=== PATIENT | female | born 1980 | race Caucasian/White ===

== ENCOUNTER 2024-03-19 20:47 | Emergency (ER) | payer SELFPAY ==
[2024-03-19] MEDS ORDERED: ONDANSETRON 4 MG/2 ML VIAL ONE (21:08)
[2024-03-19] MEDS ORDERED: LIDOCAINE 1% 20 ML MDV ONE (21:08)
[2024-03-19] MEDS ORDERED: KETOROLAC 30 MG/ML INJ ONE (21:08)
[2024-03-19] MEDS ORDERED: AMOX/K CLAV 875 MG TAB ONE (21:08)
[2024-03-19] MEDS ORDERED: FENTANYL CITR 100 MCG/2 ML ONE (21:09)
[2024-03-19] MEDS ORDERED: DIAZEPAM 5 MG TABLET ONE (21:09)
[2024-03-19] MEDS ORDERED: TDAP (DIPHTH,PERTUSS(ACELL),TET VAC) 0.5 ML VIAL IMVAC ONE (21:09)
[2024-03-19] MEDS ORDERED: PROMETHAZINE INJ 25 MG/ML AMP ONE (21:37)
--- NOTE | 2024-03-19 21:55 | RAD REPORT ---
EXAM DESCRIPTION: RAD - Tib Fib Right - 03/19/2024 9:34 pm CLINICAL HISTORY: ANIMAL BITE COMPARISON: <Comparisons> FINDINGS: No fracture, dislocation or joint effusion.
--- NOTE | 2024-03-19 21:56 | RAD REPORT ---
EXAM DESCRIPTION: RAD - Foot Right 3 View - 03/19/2024 9:34 pm CLINICAL HISTORY: ANIMAL BITE COMPARISON: <Comparisons> FINDINGS: No fracture, dislocation or aggressive marrow lesion. Small calcaneal spur. Small calcific ation posterior to the distal tibia likely chronic.
[2024-03-19] MEDS ORDERED: methocarbamoL 750 MG TAB ONE (23:25)
[2024-03-19] MEDS ORDERED: HYDROCODONE/APAP 10/325 TAB ONE (23:25)
--- NOTE | 2024-03-19 23:25 | ER ---
Nurse's Notes [facility] Name: Samantha River Age: 43 yrs Sex: Female : 1980 Arrival Date: 03/19/2024 Time: 20:47 Bed 14 Private MD: Diagnosis: Right foot dog bite,, right ankle sprain, right foot sprain, right knee sprain, acute puncture wound to right lower extremity and that after the dog bite;Bitten by dog, initial encounter Presentation: 03/19 20:57 Chief complaint: Patient states: dog bite and right knee injury. States she twisted her cp4 knee when she was trying to get away from the dog. 23:56 Coronavirus screen: Client denies travel out of the [place] in the last 14 days. At this cp4 time, the client does not indicate any symptoms associated with coronavirus-19. Ebola Screen: Patient negative for fever greater than or equal to 101.5 degrees Fahrenheit, and additional compatible Ebola Virus Disease symptoms Patient denies exposure to infectious person. Patient denies travel to an Ebola-affected area in the 21 days before illness onset. No symptoms or risks identified at this time. Initial Sepsis Screen: Does the patient meet any 2 criteria? No. Patient's initial sepsis screen is negative. Does the patient have a suspected source of infection? No. Patient's initial sepsis screen is negative. Risk Assessment: Do you want to hurt yourself or someone else? Patient reports no desire to harm self or others. Onset of symptoms was March 19, 2024. 23:56 Acuity: STEFFANY 3 cp4 23:56 Method Of Arrival: Wheelchair cp4 Triage Assessment: 21:02 General: Appears distressed, Behavior is agitated, anxious. Pain: Complains of pain in cp4 right knee Pain began 30 min ago. Musculoskeletal: Reports pain in right knee. Injury Description: Puncture sustained to right foot. 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 - Infectious Disease History:: Denies. - Social history:: Smoking status: Patient denies any tobacco usage or history of. Screenin:05 [facility] ED Fall Risk Assessment (Adult) History of falling in the last 3 months, cp4 including since admission No falls in past 3 months (0 pts) Confusion or Disorientation No (0 pts) Intoxicated or Sedated No (0 pts) Impaired Gait No (0 pts) Mobility Assist Device Used No (0 pt) Altered Elimination No (0 pt) Score/Fall Risk Level 0 - 2 = Low Risk Oriented to surroundings, Maintained a safe environment, Assessed \T\ reinforced patient's understanding of fall precautions, Hourly rounding (assess needs \T\ fall precautionary measures) done. Abuse screen: Denies threats or abuse. Nutritional screening: No deficits noted. Tuberculosis screening: No symptoms or risk factors identified. Assessment: 21:00 Reassessment: [place] PD contacted for dog bite. Patient informed that she needs to go cp4 by the PD to file a complaint. Animal Control will contact her on Friday. 21:05 Reassessment: No changes from previously documented assessment. cp4 Vital Signs: 21:02 BP 144 / 103; Pulse 103; Resp 20; Temp 98; Pulse Ox 97% ; Weight 73.48 kg; Height 5 ft. cp4 3 in. ; Pain 10/10; 23:53 BP 113 / 75; Pulse 74; Resp 18; Temp 98; Pulse Ox 97% ; Pain 5/10; cp4 21:02 Body Mass Index 28.70 (73.48 kg, 160.02 cm) cp4 21:02 Pain Scale: Adult cp4 23:53 Pain Scale: Adult cp4 ED Course: 20:54 Patient arrived in ED. cg 20:56 Norris Hanson PA is PHCP. cp 20:56 Paul Wheeler MD is Attending Physician. cp 20:56 Mary Beth Tanner is Primary Nurse. cp4 21:02 Arm band placed on right wrist. Patient placed in waiting room. cp4 21:05 Bed in low position. Call light in reach. Side rails up X2. cp4 21:09 Inserted saline lock: 22 gauge in right antecubital area, using aseptic technique. aw1 21:35 Tib Fib Right XRAY In Process Unspecified. EDMS 21:35 Foot Right 3 View XRAY In Process Unspecified. EDMS 23:23 Domenic Seymour MD is Referral Physician. sp4 23:54 Provided Education on: crutch training.. cp4 23:54 Crutch training done. Ortho shoe applied to right foot. cp4 23:57 Triage completed. cp4 23:58 No provider procedures requiring assistance completed. intact, bleeding controlled, No cp4 redness/swelling at site. Pressure dressing applied. Administered Medications: 21:17 Drug: Ondansetron IVP 4 mg IVP once; over 2 minutes Route: IVP; Site: right antecubital;cp4 22:11 Follow up: Response: No adverse reaction cp4 21:18 Drug: fentaNYL (PF) IVP 100 mcg IVP once Route: IVP; Site: right antecubital; cp4 22:12 Follow up: Response: No adverse reaction cp4 21:18 Drug: Ketorolac IVP 30 mg IVP once Route: IVP; Site: right antecubital; cp4 22:11 Follow up: Response: No adverse reaction cp4 21:18 Drug: Amoxicillin-Clavulanate PO 875 mg PO once Route: PO; cp4 22:11 Follow up: Response: No adverse reaction cp4 21:19 Drug: Boostrix Tdap IM 0.5 ml IM once; as a single dose Route: IM; Site: right deltoid; cp4 22:12 Follow up: Response: No adverse reaction cp4 21:19 Drug: Diazepam PO 5 mg PO once Route: PO; cp4 22:11 Follow up: Response: No adverse reaction cp4 21:41 Drug: Promethazine IM 50 mg IM once Route: IM; Site: right ventrogluteal; cp4 22:11 Follow up: Response: No adverse reaction cp4 23:30 Drug: [place] PO 10 mg-325 mg 1 tabs PO once Route: PO; cp4 23:51 Follow up: Response: No adverse reaction cp4 23:30 Drug: Methocarbamol PO 750 mg PO once Route: PO; cp4 23:52 Follow up: Response: No adverse reaction cp4 23:44 Drug: Lidocaine Infiltration (1 %) 20 ml 20 ml Infiltration once; to bedside Volume: 20 cp4 ml; Route: Infiltration; 23:44 Follow up: Response: No adverse reaction cp4 Medication: 21:05 VIS not applicable for this client. cp4 Outcome: 23:24 Discharge ordered by . sp4 23:55 Discharged to home via wheelchair, with crutches, cp4 23:55 Condition: stable 23:55 Discharge instructions given to patient, family, Instructed on discharge instructions, follow up and referral plans. medication usage, crutch walking, Demonstrated understanding of instructions, follow-up care, wound care, crutch walking, Prescriptions given X 4, 03/20 00:00 Patient left the ED. cp4 Signatures: Dispatcher [employer] EDMS Norris Hanson PA PA cp Garcia, Cindy, RN RN cg Potepalov, Sergey, MD MD sp4 Shanita Acosta [facility] Mary Beth Tanner cp4
--- NOTE | 2024-03-19 23:25 | EDPHYS ---
Physician Documentation [facility] Name: Samantha River Age: 43 yrs Sex: Female : 1980 Arrival Date: 03/19/2024 Time: 20:47 Bed 14 Private MD: ED Physician Paul Wheeler HPI: 03/19 21:06 This 43 yrs old Female presents to ER via Unassigned with complaints of Knee sp4 Injury, Dog Bite. 21:06 Patient presents with acute right lower extremity pain secondary to the dog bite to the sp4 right lateral foot . Acute panic attack on presentation.. . 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 - Infectious Disease History:: Denies. - Social history:: Smoking status: Patient denies any tobacco usage or history of. Vital Signs: 21:02 BP 144 / 103; Pulse 103; Resp 20; Temp 98; Pulse Ox 97% ; Weight 73.48 kg; Height 5 ft. cp4 3 in. ; Pain 10/10; 23:53 BP 113 / 75; Pulse 74; Resp 18; Temp 98; Pulse Ox 97% ; Pain 5/10; cp4 21:02 Body Mass Index 28.70 (73.48 kg, 160.02 cm) cp4 21:02 Pain Scale: Adult cp4 23:53 Pain Scale: Adult cp4 MDM: 20:56 Patient medically screened. cp 22:17 ED course: EXAM DESCRIPTION: RAD - Foot Right 3 View - 03/19/2024 9:34 pm CLINICAL sp4 HISTORY: ANIMAL BITE COMPARISON: FINDINGS: No fracture, dislocation or aggressive marrow lesion. Small calcaneal spur. Small calcification posterior to the distal tibia likely chronic. . ED course: EXAM DESCRIPTION: RAD - Tib Fib Right - 03/19/2024 9:34 pm CLINICAL HISTORY: ANIMAL BITE COMPARISON: FINDINGS: No fracture, dislocation or joint effusion.. 03/19 20:59 Order name: Tib Fib Right XRAY sp4 03/19 20:59 Order name: Foot Right 3 View XRAY sp4 03/19 20:57 Order name: Wound Care; Complete Time: 21:09 sp4 03/19 20:57 Order name: Dressing - Wound; Complete Time: 23:23 sp4 03/19 20:57 Order name: Gloves, Sterile; Complete Time: 21:09 sp4 03/19 20:57 Order name: Setup Suture Tray; Complete Time: 21:09 sp4 03/19 20:58 Order name: Saline Lock; Complete Time: 21:06 sp4 03/19 23:22 Order name: Crutch Training; Complete Time: 23:23 sp4 03/19 23:22 Order name: Orthopedic shoe: Right leg Ortho boot - applied by MD ; Complete Time: 23:23sp4 Administered Medications: 21:17 Drug: Ondansetron IVP 4 mg IVP once; over 2 minutes Route: IVP; Site: right antecubital;cp4 22:11 Follow up: Response: No adverse reaction cp4 21:18 Drug: fentaNYL (PF) IVP 100 mcg IVP once Route: IVP; Site: right antecubital; cp4 22:12 Follow up: Response: No adverse reaction cp4 21:18 Drug: Ketorolac IVP 30 mg IVP once Route: IVP; Site: right antecubital; cp4 22:11 Follow up: Response: No adverse reaction cp4 21:18 Drug: Amoxicillin-Clavulanate PO 875 mg PO once Route: PO; cp4 22:11 Follow up: Response: No adverse reaction cp4 21:19 Drug: Boostrix Tdap IM 0.5 ml IM once; as a single dose Route: IM; Site: right deltoid; cp4 22:12 Follow up: Response: No adverse reaction cp4 21:19 Drug: Diazepam PO 5 mg PO once Route: PO; cp4 22:11 Follow up: Response: No adverse reaction cp4 21:41 Drug: Promethazine IM 50 mg IM once Route: IM; Site: right ventrogluteal; cp4 22:11 Follow up: Response: No adverse reaction cp4 23:30 Drug: [place] PO 10 mg-325 mg 1 tabs PO once Route: PO; cp4 23:51 Follow up: Response: No adverse reaction cp4 23:30 Drug: Methocarbamol PO 750 mg PO once Route: PO; cp4 23:52 Follow up: Response: No adverse reaction cp4 23:44 Drug: Lidocaine Infiltration (1 %) 20 ml 20 ml Infiltration once; to bedside Volume: 20 cp4 ml; Route: Infiltration; 23:44 Follow up: Response: No adverse reaction cp4 Disposition Summary: 03/19/24 23:24 Discharge Ordered Notes: Location: Home sp4 Problem: new sp4 Symptoms: have improved sp4 Condition: Stable sp4 Diagnosis - Right foot dog bite,, right ankle sprain, right foot sprain, right knee sprain, sp4 acute puncture wound to right lower extremity and that after the dog bite - Bitten by dog, initial encounter sp4 Followup: sp4 - With: Domenic Seymour MD - When: 7 - 10 days - Reason: Recheck today's complaints Discharge Instructions: - Discharge Summary Sheet sp4 - Animal Bite, Adult, [id number] sp4 Forms: - Patient Portal Instructions sp4 Prescriptions: - naproxen 500 mg Oral tablet - take 1 tablet ORAL route every 12 hours PRN pain; 30 tablet; Refills: 0, sp4 Product Selection Permitted - Cephalexin 500 mg Oral Capsule - take 1 capsule ORAL route every 12 hours for 10 days; 20 capsule; Refills: 0, sp4 Product Selection Permitted - Tramadol 50 mg Oral tablet - take 1 tablet ORAL route every 8 hours as needed; 20 tablet; Refills: 0, sp4 Product Selection Permitted - promethazine 25 mg Oral tablet - take 1 tablet ORAL route every 6 hours As needed PRN nausea; 30 tablet; sp4 Refills: 0, Product Selection Permitted Signatures: Dispatcher [employer] EDMS Norris Hanson PA PA cp Potepalov, Sergey, MD MD sp4 Mary Beth Tanner 4 Corrections: (The following items were deleted from the chart) 20:59 20:59 Tib Fib Right+[email or web address] ordered. EDMS EDMS
[2024-03-20 00:32] VITALS: TEMP 98; O2SAT 97
[2024-03-20 01:04] VITALS: BP 144/103
== END 2024-03-20 | disposition home or self-care (01) ==
LOC: ER 20:47
DX: S81.031A Puncture wound without foreign body, right knee, initial encounter (principal); W54.0XXA Bitten by dog, initial encounter; S93.401A Sprain of unspecified ligament of right ankle, initial encounter; S93.601A Unspecified sprain of right foot, initial encounter; S83.91XA Sprain of unspecified site of right knee, initial encounter
CPT/HCPCS: 96372; 96374; 96375; 99284; J2001; J2405; J2550; J3010